=== PATIENT | male | born 1950 | race Caucasian/White ===

== ENCOUNTER 2017-01-27 11:45 | Day surgery (SDC) | payer OTHER ==
[~2017-01-27] VITALS: Ht 180.3 cm; Wt 102.3 kg
[~2017-01-27 11:45] MED LIST: 0.9% Sodium Chloride 1,000 ML IV SCH; Sodium Chloride LOK Flush 10 mL Syringe IV PRN; fentaNYL-PF 50 mCg/mL 2 mL Inj IVPUSH PRN
[2017-01-27] MEDS ORDERED: OMEP20TA86 PO (13:02)
[2017-01-27] MEDS ORDERED: 0.9% Sodium Chloride 1,000 ML ONE (13:06)
[2017-01-27 13:10] VITALS: BP 149/84; PULSE 72; RESP 16; O2SAT 97
[2017-01-27] MEDS ORDERED: fentaNYL-PF 50 mCg/mL 2 mL Inj ONE (13:28)
--- NOTE | 2017-01-27 14:36 | PCM.ENDCOL ---
Colonoscopy Date of Service: Jan 27, 2017 Physician Jose Loo MD Pre Procedure Diagnosis: Screening Post Procedure Dx & Findings: Polyp hemorrhoids diverticuli Procedure Colonoscopy Prep adequate PROCEDURE IN DETAIL: After unremarkable rectal examination, Olympus video colonoscope was inserted into patient's anal canal is advanced to cecum. Landmarks were identified including views of valve and appendiceal orifice. Scope was systematically. In the ascending colon, there was a 2 mm polyp which was removed completely using cold snare. In the transverse colon, there was a 1 1/2 cm prominent mucosa with positive pillow sign. Biopsy obtained. After the biopsy we saw the fatty tissue therefore most likely lipoma. In the transverse colon, there was a 1 mm polyp which was removed completely using cold forceps. In the descending colon, there was a 2 cm flat polyp. In the middle, there was a superficial erosion in the center. 8 cc normal saline injected and the polyp successfully lifted. The snare bounced and we had to take the polyp out in piecemeal fashion. It was completely resected. A resolution clip deployed. 4 mL of Jessenia ink deployed for tattoo purposes. In the sigmoid colon several medium-sized diverticula noted. In the rectum retroflexion was done which showed hemorrhoids anal canal was inspected carefully on the way out and hemorrhoids noted. The mucosa of the cecum, ascending, transverse, descending, sigmoid, rectal mucosa lined with whitish, pink, smooth, glistening, normal-appearing mucosa, normal fine branching, underlying vascularity, normal haustra. The patient tolerated procedure and was transported to observation area. Impression Descending colon polyp 2 cm. This was removed completely using hot snare in a piecemeal fashion. 4 mL tattoo. Ascending colon polyp removed completely using cold snare. Transverse colon polyp status post complete removal using forceps. 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 Diverticula Hemorrhoids Recommendation Diverticular diet Repeat colonoscopy 3 month. Presedation Assessment Risks and Benefits Informed consent was obtained from the patient after all risks and benefits including but not limited to drug reaction, infection, pain, bleeding, perforation, as well as alternatives were discussed. Patient monitoring Continuous pulse oximetry, cardiac monitoring, blood pressure monitoring, IV access, and oxygen at 2L per nasal cannula. Periprocedural Fentanyl: Fentanyl 75mcg Incrementally Midazolam: Midazolam 4mg Incrementally Complications There were no periprocedural complications identified. Post Procedure Plan Post Procedure Recommendations 1. Restrict activities today. 2. Resume normal activities in the morning. 3. Resume medications. 4. Patient informed of normal post procedure side effects as bloating, drowsiness, blood streaking in the stool. 5. average risk CRCS. If colon polyps come back as: -Hyperplastic- can repeat colonoscopy in 10 years -Tubular adenoma- repeat colonoscopy in 5 years -Tubulovillous/villous adenoma- repeat colonoscopy in 3 years -If any dysplasia- return to clinic as soon as possible 6. Please don't hesitate to call me with any questions. Jose Loo MD Jan 27, 2017 14:36
[2017-01-27 14:38] VITALS: BP 146/92; PULSE 65; RESP 14; O2SAT 99
[2017-01-27 14:48] VITALS: BP 135/83; PULSE 68; RESP 16; O2SAT 96
[2017-01-27 14:54] VITALS: BP 133/81; PULSE 61; RESP 20; O2SAT 97
--- NOTE | 2017-01-29 13:52 | PATH ---
SURGICAL PATHOLOGY Attending Physician:Jose Loo M.D. CASE STATUS: Signed Out PATIENT NAME: ОЛЕГ GUADALUPE PID: [id number] : 1950 DATE COLLECTED:01/27/2017 00:00 SPECIMEN: 1: Colon, Biopsy 2: Colon, Biopsy 3: Colon, Biopsy 4: Colon, Biopsy CLINICAL HISTORY: POLYPS 1).ASCENDING COLON POLYP X1 2).TRANSVERSE COLON LIPOMA BIOPSY 3).TRANSVERSE COLON POLYP X1 4).DESCENDING COLON POLYP X1 FINAL DIAGNOSIS: 1.ASCENDING COLON POLYP: SESSILE SERRATED ADENOMA. 2.TRANSVERSE COLON LIPOMA BIOPSY: COLONIC MUCOSA WITH NO DIAGNOSTIC ALTERATIONS. NEGATIVE FOR DYSPLASIA AND MALIGNANCY. 3.TRANSVERSE COLON POLYP: TUBULAR ADENOMA. 4.DESCENDING COLON POLYP: TUBULAR ADENOMA, MULTIPLE FRAGMENTS. ICD10 CODE D12.2 D12.3 D12.4 GROSS DESCRIPTION: The specimen is received in four formalin filled containers labeled with the patient's name. 1). The specimen is sublabeled "ascending colon polyp" and consists of 3 portions of tissue which aggregate to 0.3 x 0.3 x 0.2 CM. The specimen is entirely submitted in cassette 1A. 2). The specimen is sublabeled "transverse colon lipoma" and consists of a 0.3 x 0.2 x 0.2 CM portion of tissue which is entirely submitted in cassette 2A. 3). The specimen is sublabeled "transverse colon polyp" and consists of a 0.2 x 0.2 x 0.2 CM portion of tissue which is entirely submitted in cassette 3A. 4). The specimen is sublabeled "descending colon polyp" and consists of multiple portions of tissue which aggregate to 0.7 x 0.4 x 0.2 CM. The specimen is entirely submitted in cassette 4A. 01/28/2017 [facility] MICRO DESCRIPTION: See diagnosis. ICD-9 CODES: CPT CODES: 1: 99194 2: 12872 3: 94363 4: 97549 Electronically Signed Out Steffanie Velez MD [facility]ly [facility] [address], [place] [address] Technical component performed at [facility], [facility] [address], [place], [address]
== END 2017-01-27 23:59 | disposition home or self-care (01) ==
LOC: END 11:45
PROVIDERS: ATTEND Internal Medicine
DX: Z12.11 Encounter for screening for malignant neoplasm of colon (principal); Z86.010 Personal history of colon polyps; D12.2 Benign neoplasm of ascending colon; D12.4 Benign neoplasm of descending colon; D12.3 Benign neoplasm of transverse colon; D17.5 Benign lipomatous neoplasm of intra-abdominal organs; K57.30 Diverticulosis of large intestine without perforation or abscess without bleeding; K64.9 Unspecified hemorrhoids
CPT/HCPCS: 45380; 45385; 99153; G0500; J2250; J3010; J7030